=== PATIENT | male | born 1935 | race Caucasian/White ===

== ENCOUNTER 2018-03-08 19:05 | Observation (INO) | payer MEDICARE ==
[2018-03-08 19:10] VITALS: RESP 20
--- NOTE | 2018-03-08 19:41 | C.PDOC ---
History Of Present Illness 82 year old male presents to the ED c/o anterior chest wall heaviness radiating to his left upper extremity. Patient states symptoms started today at approximately at 11:00. Patient states his symptoms have been on and off associated with some SOB. Patient denies headache, dizziness, lightheadedness, fever, chill, nausea, vomit. Chief Complaint (Nursing): Chest Pain History Per: Patient History/Exam Limitations: no limitations Onset/Duration Of Symptoms: Hrs (11:00) Current Symptoms Are (Timing): Still Present Quality: Other (heaviness) Alleviating Factors: None Recent travel outside of the [place]: No Additional History Per: Patient Past Medical History Reviewed: Historical Data, Nursing Documentation, Vital Signs Vital Signs: Last Vital Signs Temp 98.6 F 03/08/18 19:11 Pulse 82 03/08/18 19:11 Resp 20 03/08/18 19:11 BP 153/94 H 03/08/18 19:11 Pulse Ox 99 03/08/18 20:25 - Medical History PMH: Diabetes, HTN Surgical History: No Surg Hx - [facility] Procedures TETANUS TOXOID ADMINIST (12/25/13) Family History: States: Unknown Family Hx - Social History Hx Tobacco Use: No Hx Alcohol Use: No Hx Substance Use: No - Immunization History Hx Tetanus Toxoid Vaccination: No Hx Influenza Vaccination: Yes Hx Pneumococcal Vaccination: No Review Of Systems Constitutional: Negative for: Fever, Chills Cardiovascular: Positive for: Chest Pain. Negative for: Palpitations Respiratory: Positive for: Shortness of Breath. Negative for: Cough Gastrointestinal: Negative for: Nausea, Vomiting Skin: Negative for: Rash Neurological: Negative for: Weakness, Numbness, Headache, Dizziness Physical Exam - Physical Exam Appears: Non-toxic, No Acute Distress Skin: Normal Color, Warm, Dry Head: Atraumatic, Normacephalic Eye(s): bilateral: Normal Inspection Neck: Normal ROM, Supple Chest: Symmetrical Cardiovascular: Rhythm Regular Respiratory: Normal Breath Sounds, No Rales, No Rhonchi, No Wheezing Gastrointestinal/Abdominal: Soft, No Tenderness, No Guarding, No Rebound Extremity: Normal ROM, No Tenderness, No Swelling Neurological/Psych: Oriented x3, Normal Speech Gait: Steady ED Course And Treatment - Laboratory Results Result Diagrams: 03/08/18 19:47 03/08/18 19:47 ECG: Interpreted By Me, Viewed By Me ECG Rhythm: R BBB ECG Interpretation: No Acute Changes, Abnormal Interpretation Of ECG: NSR, CRBBB,abnormal tracings. Rate From EC O2 Sat by Pulse Oximetry: 99 (ON RA) Pulse Ox Interpretation: Normal Medical Decision Making Medical Decision Making: Plan: * EKG * Labs * CXR * Nitroglycerin 1 ea TOP * IV fluids Disposition Discussed With DrBharti: America Valenzuela Doctor Will See Patient In The: Hospital Counseled Patient/Family Regarding: Diagnosis - Disposition Disposition: HOSPITALIZED Disposition Time: 20:25 Condition: STABLE Forms: O[employer]ven (Bangladeshi) - POA Present On Arrival: None - Clinical Impression Clinical Impression: Chest pain, Diabetes mellitus - Scribe Statement The provider has reviewed the documentation as recorded by the Scribe Manuelito Bang All medical record entries made by the Scribe were at my direction and personally dictated by me. I have reviewed the chart and agree that the record accurately reflects my personal performance of the history, physical exam, medical decision making, and the department course for this patient. I have also personally directed, reviewed, and agree with the discharge instructions and disposition.
[2018-03-08] MEDS ORDERED: Sodium Chloride 0.9% 1,000 ML IV ONE (19:42)
[2018-03-08] MEDS ORDERED: Nitroglycerin 2% Ointment Foilpak UD TOP STA (19:42)
[2018-03-08] MEDS ORDERED: Nitroglycerin 2% Ointment Foilpak UD TOP ONE (19:48)
[2018-03-08 19:51] LABS: BASO % 0.6 % (0.0-2.0); EOS # 0.1 K/uL (0.0-0.7); EOS % 1.3 % (0.0-4.0); HEMOGLOBIN 13.6 g/dL (12.0-18.0); LYMPH # 2.1 K/uL (1.0-4.3); LYMPH % 30.9 % (20.0-40.0); MEAN CELL VOLUME 87.3 fL (80.0-94.0); MEAN CORPUSCULAR HEMOGLOBIN 30.2 pg (27.0-31.0); MEAN CORPUSCULAR HGB CONC 34.6 g/dL (33.0-37.0); MONO # 0.8 K/uL (0.0-0.8); MONO % 12.7 % (0.0-10.0); NEUT # 3.6 K/uL (1.8-7.0); NEUT % 54.5 % (50.0-75.0); NRBC % 0.2 % (0.0-2.0); RBC 4.49 Mil/uL (4.40-5.90); RED CELL DISTRIBUTION WIDTH 13.2 % (11.5-14.5); WHITE BLOOD COUNT 6.7 K/uL (4.8-10.8)
[2018-03-08 20:04] LABS: PARTIAL THROMBOPLASTIN TIME 36 SECONDS (21-34); PROTHROMBIN TIME 11.2 SECONDS (9.7-12.2)
[2018-03-08 20:05] LABS: ALB/GLOB RATIO 1.6 (1.0-2.1); ALBUMIN 4.6 g/dL (3.5-5.0); ALT/SGPT 27 U/L (21-72); AST/SGOT 21 U/L (17-59); BLOOD UREA NITROGEN 18 mg/dL (9-20); CALCIUM 9.9 mg/dl (8.6-10.4); GFR NON-AFRICAN AMERICAN > 60
[2018-03-08 20:09] LABS: D DIMER < 200 ng/mlDDU (0-243)
[2018-03-08 20:16] LABS: B-TYPE NATRIURETIC PEPTIDE 171 pg/mL (0-900)
[2018-03-08] MEDS ORDERED: (Novolin R) Insulin Human Regular 100 units/ml vial SC SCH (22:00)
[2018-03-08] MEDS: (Novolin R) Insulin Human Regular 100 units/ml vial SC SCH (22:26)
[2018-03-09] MEDS: Nitroglycerin 2% Ointment Foilpak UD TOP SCH ×3 (00:20→12:13)
[2018-03-09] MEDS ORDERED: Nitroglycerin 2% Ointment Foilpak UD TOP SCH (02:00)
[2018-03-09 04:44] LABS: CK-MB 1.19 ng/mL (0.0-3.38)
[2018-03-09] MEDS: (Novolin R) Insulin Human Regular 100 units/ml vial SC SCH ×2 (07:27→11:35)
[2018-03-09 07:58] VITALS: BP 101/59; TEMP 97.7; O2SAT 97
[2018-03-09 08:25] VITALS: PULSE 71
--- NOTE | 2018-03-09 09:59 | RAD ---
Date of service: 03/08/2018 PROCEDURE: CHEST RADIOGRAPH, 1 VIEW HISTORY: chest pain COMPARISON: Comparison made with chest radiograph dated 09/23/2012 FINDINGS: LUNGS: Poor inspiration with low lung volumes, crowded bronchovascular markings and minor bibasilar atelectasis. PLEURA: No pneumothorax or pleural fluid seen. CARDIOVASCULAR: Normal. OSSEOUS STRUCTURES: No significant abnormalities. VISUALIZED UPPER ABDOMEN: Normal. OTHER FINDINGS: None. IMPRESSION: Poor inspiration with low lung volumes, crowded bronchovascular markings and minor bibasilar atelectasis.
[2018-03-09] MEDS ORDERED: Enoxaparin 40 mg Syringe SC SCH (10:00)
--- NOTE | 2018-03-09 12:33 | CP.PCM.HP ---
History of Present Illness - History of Present Illness History of Present Illness: COMPREHENSIVE HISTORY & PHYSICAL EXAM HPI Patient was admitted from emergency room with chest pain. For the last few hours patient was complaining of chest pain radiating to left. Patient was evaluated in the emergency room. EKG showed T wave inversions in anterolateral leads. Previous EKG done was in 2012 showed normal T waves. PAST HIST. Patient has a history of hypertension history of type 2 diabetes and prostate hypertrophy. Patient also has been complaining of chest pain previously and is to come for follow-up in the office for cardiac testing. Patient had an echocardiogram done in 2017 which showed normal left ventricular ejection fraction normal wall motion and no regional wall motion abnormality.. Patient has failed to follow-up for stress test PERSONAL HIST: Smoking. N Alcohol. N Allergy N Travel_- . FAMILY HIST : ROS : Constitutional: Negative for weight change, chills, night sweats, fatigue and usage of assist device. Eyes: Negative for redness, swelling, itching, discharge, vision changes, blurry vision, double vision, glaucoma, cataracts, Ears: Negative for hearing loss, ringing, , tinnitus, vertigo Nose: Negative for rhinorrhea, stuffiness, sniffing, itching, postnasal drip, discoloration, nasal congestion and epistaxis. Throat: Negative for throat clearing, sore throat, hoarseness, difficulty swallowing and difficulty speaking. Respiratory: Negative for cough, , sputum production, chest tightness, wheezing, pleuritic chest pain ,daytime somnolence, chronic cough, hemoptysis, snoring at night, Cardiovascular: Negative for, Edema of legs, leg cramps, angina, claudication, , irregular heartbeat, Neurology: Negative for irritability, muscle weakness, numbness and tingling, seizures, tremors, migraines, slurred speech, syncope, memory loss, mood changes , recurrent headaches Gastrointestinal: Negative for difficulty swallowing, diarrhea, constipation, black stools, rectal bleeding, nausea, flatulence, reflux, poor appetite, changes in bowel habits, abdominal pain Genitourinary: Negative for frequent urination, hematuria, discharge, incontinence, urinary retention, frequent UTI, Psychiatric: Negative for depression, anxiety/panic, suicidal tendencies, Musculoskeletal: Negative for swollen joints, back pain, , neck pain, morning stiffness of joints, . Skin: Negative for rash, ulcers, itching, dry skin and pigmented lesions. P/E: Constitutional: Appears stated age and in no apparent distress. Head: Normocephalic. Ears: External ear canals patent without inflammation. Tympanic membranes intact with normal light reflex and landmark. Eyes: Pupils are central, bilaterally equal, symmetrical and reacts to light with normal movements and no icterus or pallor. Nose: External nares are patent. Mucosa is pink Mouth-Throat: Good general appearance and condition. No post-pharyngeal/oropharyngeal erythema and tonsillar hypertrophy. Good dental hygiene. Neck-Lymphatic: Neck is supple with normal ROM, no thyromegaly, lymph nodes or masses. JVD is normal with no carotid bruit. Lungs: Clear to percussion and auscultation with bilateral normal air entry. Cardiovascular: S1 and S2 are normal with no murmurs, gallops and rub. GI Exam: No hepatomegaly. Abdomen is soft and non-tender. No Organomegaly , masses or hernias are evident and bowel sounds are normal and active. Neurology: Higher function and all cranial nerves intact, with no gross motor or sensory deficit. Superficial and deep reflexes are normal with downwards planters. No cerebellar deficit with normal gait. Musculoskeletal: No tender spots with normal curvature of the spine with no swelling or restricted ROM of the small and large joints. Extremities: Homans sign absent. Intact pulses with no pitting edema, calf tenderness or skin color changes. Skin: No rash, eruptions or abnormal skin pigmentation LAB/RADIOLOGY: ASSESMENT : 82 years old Armenian male with a history of hypertension diabetes with chest pain with abnormal EKG rule out acute coronary syndrome. PLAN: Serial cardiac enzymes discussed with the patient further treatment Present on Admission - Present on Admission Any Indicators Present on Admission: No Past Patient History - Past Social History Smoking Status: Never Smoked - CARDIAC Hx Hypertension: Yes - ENDOCRINE/METABOLIC Hx Diabetes Mellitus Type 2: Yes - PSYCHIATRIC Hx Substance Use: No - SURGICAL HISTORY Hx Surgeries: No - ANESTHESIA Hx Anesthesia: No Hx Anesthesia Reactions: No Meds Allergies/Adverse Reactions: Allergies Allergy/AdvReac Type Severity Reaction Status Date / Time No Known Allergies Allergy Verified 03/08/18 19:10 Results - Vital Signs Recent Vital Signs: Last Vital Signs Temp 97.7 F 03/09/18 07:00 Pulse 71 03/09/18 08:23 Resp 20 03/09/18 07:00 BP 101/59 L 03/09/18 07:00 Pulse Ox 97 03/09/18 07:00 - Labs Result Diagrams: 03/08/18 19:47 03/08/18 19:47 Labs: Laboratory Results - last 24 hr 03/08/18 03/08/18 03/08/18 19:47 19:47 19:47 WBC 6.7 RBC 4.49 Hgb 13.6 Hct 39.2 MCV 87.3 MCH 30.2 MCHC 34.6 RDW 13.2 Plt Count 270 MPV 8.0 Neut % (Auto) 54.5 Lymph % (Auto) 30.9 Daniels % (Auto) 12.7 H Eos % (Auto) 1.3 Baso % (Auto) 0.6 Neut # (Auto) 3.6 Lymph # (Auto) 2.1 Daniels # (Auto) 0.8 Eos # (Auto) 0.1 Baso # (Auto) 0.0 PT 11.2 INR 1.0 APTT 36 H D-Dimer, Quantitative < 200 Sodium 141 Potassium 4.3 Chloride 100 Carbon Dioxide 30 Anion Gap 15 BUN 18 Creatinine 1.1 Est GFR ( Amer) > 60 Est GFR (Non-Af Amer) > 60 POC Glucose (mg/dL) Random Glucose 117 H Calcium 9.9 Total Bilirubin 0.6 AST 21 ALT 27 Alkaline Phosphatase 66 Total Creatine Kinase CK-MB (Mass) Troponin I < 0.0120 NT-Pro-B Natriuret Pep 171 Total Protein 7.6 Albumin 4.6 Globulin 2.9 Albumin/Globulin Ratio 1.6 03/08/18 03/09/18 22:10 04:17 WBC RBC Hgb Hct MCV MCH MCHC RDW Plt Count MPV Neut % (Auto) Lymph % (Auto) Daniels % (Auto) Eos % (Auto) Baso % (Auto) Neut # (Auto) Lymph # (Auto) Daniels # (Auto) Eos # (Auto) Baso # (Auto) PT INR APTT D-Dimer, Quantitative Sodium Potassium Chloride Carbon Dioxide Anion Gap BUN Creatinine Est GFR ( Amer) Est GFR (Non-Af Amer) POC Glucose (mg/dL) 99 Random Glucose Calcium Total Bilirubin AST ALT Alkaline Phosphatase Total Creatine Kinase 145 CK-MB (Mass) 1.19 Troponin I < 0.0120 NT-Pro-B Natriuret Pep Total Protein Albumin Globulin Albumin/Globulin Ratio
[2018-03-09 13:20] LABS: CK-MB 0.92 ng/mL (0.0-3.38)
--- NOTE | 2018-03-09 15:39 | CP.PCM.PN ---
Subjective - Date & Time of Evaluation Date of Evaluation: 03/09/18 Time of Evaluation: 15:34 - Subjective Subjective: PT CLEARED FOR D/C HOME TODAY AND IS TO F/U WITH DR. ANDRADE IN THE OFFICE NEXT WEEK. TO CONTINUE SAME HOME MEDS. PT HAS TINEA ON HIS CHEST; RX FOR CLOTRIMAZOLE SENT TO PHARMACY. DISCUSSED ALL CONCERNS AND D/C PLAN WITH PT AND FAMILY. NO FURTHER ORDERS. -FOLLOW UP WITH DR. ANDRADE IN THE OFFICE NEXT WEEK---CALL THE OFFICE ON MONDAY TO MAKE AN APPOINTMENT. -CONTINUE ALL OF YOUR HOME MEDICATIONS USUAL. -REFILLS HAVE BEEN SENT TO YOUR PHARMACY FOR: 1) FUROSEMIDE 2) LISINOPRIL 3) GLIPIZIDE -NEW PRESCRIPTION SENT TO YOUR PHARMACY FOR AN ANTIFUNGAL CREAM; USE EXACTLY PRESCRIBED: 1) CLOTRIMAZOLE CREAM 1%---APPLY TO AFFECTED AREA TWICE A DAY--MAY USE FOR UP TO 2 WEEKS IF NOT RESOLVED. IF AFTER 2 WEEKS YOUR SKIN PROBLEM IS THE SAME, CONTACT YOUR PRIMARY PROVIDER. -FOR FURTHER QUESTIONS OR CONCERNS, CONTACT DR. ANDRADE. Objective - Vital Signs/Intake and Output Vital Signs (last 24 hours): Temp Pulse Resp BP Pulse Ox 97.7 F 71 20 101/59 L 97 03/09/18 07:00 03/09/18 15:13 03/09/18 07:00 03/09/18 07:00 03/09/18 07:00 Intake and Output: 03/09/18 03/09/18 06:59 18:59 Intake Total 500 Balance 500 - Medications Medications: Current Medications Enoxaparin Sodium (Lovenox) 40 mg SC DAILY [facility] Last Admin: 03/09/18 09:35 Dose: 40 mg Glipizide (Glucotrol) 10 mg PO DAILY [facility] Last Admin: 03/09/18 09:35 Dose: 10 mg Insulin Human Regular (Novolin R) 0 unit SC ACHS [facility] PRN Reason: Protocol Last Admin: 03/09/18 11:35 Dose: Not Given Lisinopril (Zestril) 10 mg PO DAILY [facility] Last Admin: 03/09/18 09:35 Dose: 10 mg Nitroglycerin (Nitro-Bid 2% Oint) 0.5 ea TOP Q6 [facility] Last Admin: 03/09/18 12:13 Dose: Not Given Tamsulosin HCl (Flomax) 0.4 mg PO DAILY [facility] Last Admin: 03/09/18 09:35 Dose: 0.4 mg - Labs Labs: 03/08/18 19:47 03/08/18 19:47 PT 11.2 SECONDS (9.7-12.2) 03/08/18 19:47 INR 1.0 03/08/18 19:47 APTT 36 SECONDS (21-34) H 03/08/18 19:47
--- NOTE | 2018-03-09 17:52 | CARD ---
APPROVED REPORT Date of service: 03/09/2018 EKG Measurement Heart [id number] CT 194P50 [id number] <Conclusion> Sinus rhythm with premature atrial complexes Right bundle branch block T wave abnormality, consider lateral ischemia Abnormal ECG
--- NOTE | 2018-03-09 17:57 | CARD ---
APPROVED REPORT Date of service: 03/08/2018 EKG Measurement Heart [id number] [place] 182P51 [id number] <Conclusion> Sinus rhythm with marked sinus arrhythmia Right bundle branch block Abnormal ECG
--- NOTE | 2018-03-10 14:48 | CP.PCM.DIS ---
Provider - Provider Date of Admission: 03/08/18 20:27 Attending physician: America Valenzuela MD Time Spent in preparation of Discharge (in minutes): 35 Hospital Course - Lab Results Lab Results: Most Recent Lab Values WBC 6.7 K/uL (4.8-10.8) 03/08/18 19:47 RBC 4.49 Mil/uL (4.40-5.90) 03/08/18 19:47 Hgb 13.6 g/dL (12.0-18.0) 03/08/18 19:47 Hct 39.2 % (35.0-51.0) 03/08/18 19:47 MCV 87.3 fL (80.0-94.0) 03/08/18 19:47 MCH 30.2 pg (27.0-31.0) 03/08/18 19:47 MCHC 34.6 g/dL (33.0-37.0) 03/08/18 19:47 RDW 13.2 % (11.5-14.5) 03/08/18 19:47 Plt Count 270 K/uL (130-400) 03/08/18 19:47 MPV 8.0 fL (7.2-11.7) 03/08/18 19:47 Neut % (Auto) 54.5 % (50.0-75.0) 03/08/18 19:47 Lymph % (Auto) 30.9 % (20.0-40.0) 03/08/18 19:47 Stewart % (Auto) 12.7 % (0.0-10.0) H 03/08/18 19:47 Eos % (Auto) 1.3 % (0.0-4.0) 03/08/18 19:47 Baso % (Auto) 0.6 % (0.0-2.0) 03/08/18 19:47 Neut # (Auto) 3.6 K/uL (1.8-7.0) 03/08/18 19:47 Lymph # (Auto) 2.1 K/uL (1.0-4.3) 03/08/18 19:47 Stewart # (Auto) 0.8 K/uL (0.0-0.8) 03/08/18 19:47 Eos # (Auto) 0.1 K/uL (0.0-0.7) 03/08/18 19:47 Baso # (Auto) 0.0 K/uL (0.0-0.2) 03/08/18 19:47 PT 11.2 SECONDS (9.7-12.2) 03/08/18 19:47 INR 1.0 03/08/18 19:47 APTT 36 SECONDS (21-34) H 03/08/18 19:47 D-Dimer, Quantitative < 200 ng/mlDDU (0-243) 03/08/18 19:47 Sodium 141 mmol/L (132-148) 03/08/18 19:47 Potassium 4.3 mmol/L (3.6-5.2) 03/08/18 19:47 Chloride 100 mmol/L (98-107) 03/08/18 19:47 Carbon Dioxide 30 mmol/L (22-30) 03/08/18 19:47 Anion Gap 15 (10-20) 03/08/18 19:47 BUN 18 mg/dL (9-20) 03/08/18 19:47 Creatinine 1.1 mg/dL (0.8-1.5) 03/08/18 19:47 Est GFR ( Amer) > 60 03/08/18 19:47 Est GFR (Non-Af Amer) > 60 03/08/18 19:47 POC Glucose (mg/dL) 114 mg/dL (65-110) H 03/09/18 11:03 Random Glucose 117 mg/dL (75-110) H 03/08/18 19:47 Calcium 9.9 mg/dl (8.6-10.4) 03/08/18 19:47 Total Bilirubin 0.6 mg/dL (0.2-1.3) 03/08/18 19:47 AST 21 U/L (17-59) 03/08/18 19:47 ALT 27 U/L (21-72) 03/08/18 19:47 Alkaline Phosphatase 66 U/L (38-126) 03/08/18 19:47 Total Creatine Kinase 137 U/L (55-170) 03/09/18 11:59 CK-MB (Mass) 0.92 ng/mL (0.0-3.38) 03/09/18 11:59 Troponin I < 0.0120 ng/mL (0.00-0.120) 03/09/18 11:59 NT-Pro-B Natriuret Pep 171 pg/mL (0-900) 03/08/18 19:47 Total Protein 7.6 g/dL (6.3-8.3) 03/08/18 19:47 Albumin 4.6 g/dL (3.5-5.0) 03/08/18 19:47 Globulin 2.9 gm/dL (2.2-3.9) 03/08/18 19:47 Albumin/Globulin Ratio 1.6 (1.0-2.1) 03/08/18 19:47 - Hospital Course Hospital Course: Patient was admitted from emergency room with chest pain. For the last few hours patient was complaining of chest pain radiating to left. Patient was evaluated in the emergency room. EKG showed T wave inversions in anterolateral leads. Previous EKG done was in 2012 showed normal T waves. PAST HIST. Patient has a history of hypertension history of type 2 diabetes and prostate hypertrophy. Patient also has been complaining of chest pain previously and is to come for follow-up in the office for cardiac testing. Patient had an echocardiogram done in 2017 which showed normal left ventricular ejection fraction normal wall motion and no regional wall motion abnormality.. Patient has failed to follow-up for stress test Patient was admitted to telemetry. There was no evidence of any cardiac arrhythmia during the hospital stay. Serial cardiac enzymes, troponin, were negative. Patient declined to have further workup in the hospital wanted to go home. Patient was given instructions to follow-up in the office post stress test and continue his present medication. Discharge Plan - Discharge Medications Prescriptions: GlipiZIDE [Glucotrol] 10 mg PO DAILY #30 tab Furosemide [Lasix] 20 mg PO BID #60 tab Clotrimazole 1% Cream [Lotrimin 1%] 30 applic TOP BID #1 tube Lisinopril [Zestril] 10 mg PO DAILY #30 tab - Follow Up Plan Condition: STABLE Disposition: HOME/ ROUTINE Instructions: Diabetes Exchange Diet, Clotrimazole (Topical), Diabetes Diet , Chest Pain (DC), Furosemide, Glipizide, Lisinopril, Diabetic Meal Planning Additional Instructions: -FOLLOW UP WITH DR. VALENZUELA IN THE OFFICE NEXT WEEK---CALL THE OFFICE ON MONDAY TO MAKE AN APPOINTMENT. -CONTINUE ALL OF YOUR HOME MEDICATIONS USUAL. -REFILLS HAVE BEEN SENT TO YOUR PHARMACY FOR: 1) FUROSEMIDE 2) LISINOPRIL 3) GLIPIZIDE -NEW PRESCRIPTION SENT TO YOUR PHARMACY FOR AN ANTIFUNGAL CREAM; USE EXACTLY PRESCRIBED: 1) CLOTRIMAZOLE CREAM 1%---APPLY TO AFFECTED AREA TWICE A DAY--MAY USE FOR UP TO 2 WEEKS IF NOT RESOLVED. IF AFTER 2 WEEKS YOUR SKIN PROBLEM IS THE SAME, CONTACT YOUR PRIMARY PROVIDER. -FOR FURTHER QUESTIONS OR CONCERNS, CONTACT DR. VALENZUELA. Referrals: America Valenzuela MD [Staff Provider] -
== END 2018-03-09 16:20 | disposition home or self-care (01) ==
LOC: C.ER 19:05 → C.9E 20:27 → C.6T 21:24
PROVIDERS: ADMIT Internal Medicine Cardiovascular Disease; ATTEND Internal Medicine Cardiovascular Disease
DX: R07.89 Other chest pain (principal); N40.0 Benign prostatic hyperplasia without lower urinary tract symptoms; I10 Essential (primary) hypertension; E11.9 Type 2 diabetes mellitus without complications; B35.9 Dermatophytosis, unspecified
CPT/HCPCS: 36415; 71045; 80053; 82948; 83880; 84484; 85025; 85378; 85610; 85730; 93005; 96372; 99285; G0378; J1650; J7030